=== PATIENT | female | born 1995 | race Caucasian/White ===

== ENCOUNTER 2016-06-28 10:16 | Emergency (ER) | payer OTHER ==
[~2016-06-28] VITALS: Ht 177.8 cm; Wt 72.8 kg
[~2016-06-28 10:16] MED LIST: CHILDREN'S100 MG/51 PO; MIRALAX17 GM PO; PRILOSEC40 MG PO
[2016-06-28] MEDS ORDERED: FLEXERIL10 MG PO (11:56)
[2016-06-28 12:05] VITALS: BP 133/79
== END 2016-06-28 12:08 | disposition home or self-care (01) ==
LOC: EME 10:16
DX: S60.212A Contusion of left wrist, initial encounter (principal); S16.1XXA Strain of muscle, fascia and tendon at neck level, initial encounter; V49.40XA Driver injured in collision with unspecified motor vehicles in traffic accident, initial encounter; Z85.43 Personal history of malignant neoplasm of ovary
CPT/HCPCS: 73110; 99281; 99283